=== PATIENT | male | born 1955 | race Caucasian/White ===

== ENCOUNTER → 2017-02-26 | Outpatient (CLI) | payer OTHER ==
[~2017-02-26] MED LIST: BENADRYL ALLERG25 M5 PO; CELECOXIB200 M1 PO; CIPRO500 MG PO; CORDROL20 MG PO; DEXILANT60 MG; DOK COLACE100 MG PO; DOK PLUS 50 MG-1 TAB PO; KEFLEX500 MG PO; LEVOFLOXACIN500 MG PO; LOPRESSOR25 MG; LOPRESSOR50 M1 PO; Lovenox40 MG/0.4 SC; MEDROL DOSEPAK4 MG PO; MILK OF MA400 MG/51 PO; NAPROSYN500 MG; NORCO 10-325 T1 EACH PO; OXYCONTIN10 M1 PO; PERCOCET 325 MG1 TA2 PO; SIMVASTATIN20 MG; ZOCOR20 MG PO; ZOFRAN 4 MG ED2 TAB PO
== END | disposition home or self-care (01) ==
LOC: ORTHO 02:36
DX: M25.562 Pain in left knee (principal); Z96.652 Presence of left artificial knee joint

== ENCOUNTER → 2017-03-22 | Outpatient (CLI) | payer OTHER ==
[2017-03-22 10:31] LABS: BASO % 0.5 % (0.0-1.0); EOS # 0.1 10*3/uL (0.0-0.4); EOS % 1.2 % (1.0-4.0); HEMATOCRIT 43.5 % (42.0-52.0); HEMOGLOBIN 14.6 g/dl (14.0-18.0); LYMPH # 1.8 10*3/uL (1.3-4.4); LYMPH % 23.7 % (27.0-41.0); MEAN CELL VOLUME 92.4 fl (80.0-94.0); MEAN CORPUSCULAR HGB CONC 33.6 g/dl (33.0-37.0); MEAN PLATELET VOLUME 10.2 fl (9.6-12.3); MONO # 0.7 10*3/uL (0.1-1.0); MONO % 9.7 % (3.0-9.0); NEUT # 4.8 10*3/uL (2.3-7.9); NEUT % 64.4 % (47.0-73.0); PLATELET COUNT AUTOMATED 191 10*3/uL (130-400); RED BLOOD COUNT 4.71 10*6/uL (4.50-5.90); RED CELL DISTRI WIDTH 13.3 % (0-14.5); WHITE BLOOD COUNT 7.4 10*3/uL (4.8-10.8)
[2017-03-22 10:59] LABS: HEMOGLOBIN A1c 5.7 % (4.8-5.6)
[2017-03-22 11:01] LABS: ALBUMIN 3.8 gm/dl (3.1-4.5); ALKALINE PHOSPHATASE 90 U/L (45-117); BILIRUBIN, TOTAL 0.5 mg/dl (0.2-1.0); BUN 16 mg/dl (7-24); CARBON DIOXIDE 27 mmol/L (21-32); CHLORIDE 106 mmol/L (98-107); CHOLESTEROL 166 mg/dL (<200); EST GLOM FILT AFRICAN AMERICAN > 60 ml/min; GLUCOSE 97 mg/dL (65-99); HDL CHOLESTEROL 23 mg/dl (40-60); POTASSIUM 3.8 mmol/L (3.5-5.1); SGOT/AST 20 IU/L (3-35); SGPT/ALT 29 U/L (12-78); SODIUM 139 mmol/L (136-145); TOTAL PROTEIN 7.5 gm/dL (6.4-8.2); TRIGLYCERIDES 440 mg/dl (<150)
== END | disposition home or self-care (01) ==
LOC: LAB 09:29
PROVIDERS: Family Medicine
DX: I10 Essential (primary) hypertension (principal)

== ENCOUNTER 2017-08-02 07:32 | Emergency (ER) | payer OTHER ==
[~2017-08-02] VITALS: Ht 177.8 cm; Wt 124.7 kg
[2017-08-02] MEDS ORDERED: LIDEX 0.05% CRE15 GM T (08:01)
[2017-08-02] MEDS ORDERED: TOBRADEX 0.1%-0.5 ML OPH (08:01)
[2017-08-02] MEDS ORDERED: PREDNISONE20 M1 PO (08:01)
== END 2017-08-02 08:07 | disposition home or self-care (01) ==
LOC: ED 07:32
DX: L25.9 Unspecified contact dermatitis, unspecified cause (principal); Z96.659 Presence of unspecified artificial knee joint; Z79.899 Other long term (current) drug therapy

== ENCOUNTER → 2017-11-05 | Outpatient (CLI) | payer OTHER ==
[~2017-11-05] MED LIST changes: +LIDEX 0.05% CRE15 GM T; +PREDNISONE20 M1 PO; +TOBRADEX 0.1%-0.5 ML OPH
== END | disposition home or self-care (01) ==
LOC: ORTHO 01:20
DX: Q66.52 Congenital pes planus, left foot (principal); M72.2 Plantar fascial fibromatosis

== ENCOUNTER → 2018-01-09 | Outpatient (CLI) | payer OTHER ==
[2018-01-09 11:58] LABS: BASO # 0.1 10*3/uL (0.0-0.1); BASO % 0.6 % (0.0-1.0); EOS # 0.1 10*3/uL (0.0-0.4); EOS % 0.9 % (1.0-4.0); HEMATOCRIT 43.3 % (42.0-52.0); HEMOGLOBIN 14.4 g/dl (14.0-18.0); LYMPH # 1.9 10*3/uL (1.3-4.4); LYMPH % 20.9 % (27.0-41.0); MEAN CELL VOLUME 91.7 fl (80.0-94.0); MEAN CORPUSCULAR HGB 30.5 pg (27.0-31.0); MEAN CORPUSCULAR HGB CONC 33.3 g/dl (33.0-37.0); MONO # 0.7 10*3/uL (0.1-1.0); NEUT # 6.3 10*3/uL (2.3-7.9); NEUT % 69.2 % (47.0-73.0); PLATELET COUNT AUTOMATED 203 10*3/uL (130-400); RED BLOOD COUNT 4.72 10*6/uL (4.50-5.90); RED CELL DISTRI WIDTH 13.5 % (0-14.5); WHITE BLOOD COUNT 9.1 10*3/uL (4.8-10.8)
[2018-01-09 12:14] LABS: ALBUMIN 3.9 gm/dl (3.1-4.5); BUN 15 mg/dl (7-24); CHLORIDE 104 mmol/L (98-107); CHOLESTEROL 157 mg/dL (<200); CREATININE 1.15 mg/dL (0.70-1.30); POTASSIUM 3.9 mmol/L (3.5-5.1); SGOT/AST 22 IU/L (3-35); SGPT/ALT 33 U/L (12-78); SODIUM 140 mmol/L (136-145); TRIGLYCERIDES 403 mg/dl (<150)
[2018-01-09 12:22] LABS: ALKALINE PHOSPHATASE 104 U/L (45-117); HDL CHOLESTEROL 22 mg/dl (40-60)
== END | disposition home or self-care (01) ==
LOC: LAB 11:21
PROVIDERS: Internal Medicine
DX: E78.2 Mixed hyperlipidemia (principal); R05 Cough; I10 Essential (primary) hypertension

== ENCOUNTER → 2018-01-15 | Outpatient (CLI) | payer OTHER | END | disposition home or self-care (01) | LOC: CARD 15:24 | DX: G47.33 Obstructive sleep apnea (adult) (pediatric) (principal); I10 Essential (primary) hypertension ==

== ENCOUNTER 2018-08-16 15:52 | Inpatient (IN) | payer OTHER ==
[~2018-08-16] VITALS: Ht 177.8 cm; Wt 122.1 kg
--- NOTE | ~2018-08-16 | EKG ---
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
--- NOTE | ~2018-08-16 | CON ---
[place], [place] REPORT OF CONSULTATION [id number] UNIT #: [id number] ROOM: 407 DOCTOR: SINDHU CANSECO MDJANINA BIRTHDATE: [birth year] DOS: 08/19/2018 PULMONARY CONSULTATION EVALUATION CONSULTATION REQUESTED BY: Hospitalist services. The patient was independently seen and examined, [id number] encounter, history was confirmed. Physical exam was performed. Labs reviewed. Assessment and management today was personally completed. Note done by the medical charge entry specialist approved. REASON FOR CONSULTATION: Assess the patient, nonresolving pneumonia, which are noted progressive with current usual treatment for community-acquired infection. HISTORY OF PRESENT ILLNESS: A 63-year-old white male who has been admitted to the hospital. The patient on the date of 08/16/2018 came into the Emergency Room was reported symptoms of syncope. The symptoms have been noted at home as the patient not feeling well prior to that for a few days. Associated symptoms of fatigue and tiredness with fever and chills and generalized malaise. The symptoms has been noted gradually worsen. The patient went to the urgent care and advised to go to the Emergency Room. The patient recommended to go to the hospital by the ambulance, but he declined, but came to the hospital by the private car. He has been noted temperature on admission in the Emergency Room for assessment of 101.2 degrees Fahrenheit, heart rate noted 94. Chest x-ray, reported as left lower lobe pneumonia. The patient has been started on the intravenous antibiotic of Levaquin 750 mg that has been continued since admission for the current medical pneumonia. The chest x-ray repeated that showed worsening of the pulmonary infiltration, requiring CT scan of the chest completion on 08/18/2018. The CT scan of the chest does show progressive consolidation in the left lower lobe and with lingula involvement. The patient does not have any symptoms of chest pain. He says these symptoms have been noted partially improved since hospitalization. He denies symptoms of hemoptysis or chest pain, fever or chills at the present time. REVIEW OF SYSTEMS: Done by the medical charge entry specialist, was approved. PAST MEDICAL HISTORY: The patient was known with: 1. History of diverticulosis. 2. Gastroesophageal reflux. 3. Hyperlipidemia. 4. Essential hypertension. 5. History of contact dermatitis. PAST SURGICAL HISTORY: Noted with the right noted knee placement that was done on 03/05/2016. SOCIAL HISTORY: Nonsmoker, lifetime. Lives at home. The patient noted nonsmoker. He is and has four children. FAMILY HISTORY: The patient's father at 89 years old from cancer and the [place], [place] REPORT OF CONSULTATION NAME: ANAHI BENAVIDEZ JR UNIT #: [id number] ROOM: 407 DOCTOR: JANINA BRADLEY MD BIRTHDATE: [birth year] mother at the age of 88 years from broken heart. MEDICATIONS: From home were listed use of Celebrex, Dexilant, Lopressor, and simvastatin. ALLERGIES: Noted with no known drug allergies. PHYSICAL EXAMINATION: GENERAL: A 63-year-old white male patient who has been currently noted without any acute distress at the time of the assessment. He has been noted comfortably sitting on the chair this morning of assessment. His height was recorded on admission by the nursing staff 5 feet 10 inches, weight of 269 pounds, BMI 38 on admission. VITAL SIGNS: The patient noted with intermittent low-grade fever range of the 103 degree Fahrenheit to 99.5 degrees Fahrenheit. The pulse oxygen saturation recorded on room air is 95%, this morning on admission. The patient requiring 4 liters of oxygen supplementation, maintain pulse ox 91%-96% saturation. HEENT: Chronic obesity. Head was atraumatic. Eyes: No icterus. NECK: Supple. CARDIOVASCULAR: S1, S2 is audible. LUNGS: The patient was noted with decreased breath sounds noted in the left lower lung. There was no wheezing or crackles. ABDOMEN: Soft, nontender. Bowel sounds present. EXTREMITIES: Without acute edema. SKIN: No lesions or rashes. MUSCULOSKELETAL: No deformities. GENITOURINARY: Cranial nerves 2-12 intact. LABORATORY DATA: CBC that was done on 08/19/2018, WBC count 11.7, hemoglobin 13.1, platelet count were normal. PT and PTT of 08/16/2018 was normal. Lactic acid on admission 08/16/2018 was normal. CMP of 08/16/2018, BUN of 20, creatinine 1.72, glucose 122. Sodium 132, AST of 61. CRP was noted as elevated as 23. The troponin which were done 3 sets on admission 08/16/[address] scan of the head, which was done for assessment syncopal episode was noted no acute intracranial abnormalities or pathologies. Urine culture of 08/16/2018 were noted as negative. Blood culture patient noted as no bacterial growths. Review of the radiology data: The chest x-ray that was done. 1. Chest x-ray was noted with a small infiltration, which appeared to be in the left lower lobe, possibly involving the lingula because of the inconspicuous left heart border. The chest x-ray that was done on 08/18/2018 was noted with increasing infiltration, consolidation, progression since comparison of chest x-ray on admission of 08/16/2018. CT scan of the chest that was done yesterday as well that has been personally reviewed. Large consolidative areas noted a bronchoscopy patient. A bronchogram resolved rather involving the right lower lobe, most of it with a small involvement of the lingula as well. The right lung appears to be clear. The mediastinal window did review is limited because of lack of intravenous contrast. However, there was no significant lymphadenopathy noted. Small hiatal hernia was also seen on the CT scan of the chest. [place], [place] REPORT OF CONSULTATION NAME: PRAMOD JRANAHI Julian UNIT #: [id number] ROOM: 407 DOCTOR: JANINA BRADLEY MD BIRTHDATE: [birth year] IMPRESSION: 1. The patient will be currently admitted to the hospital. The patient appears like community-acquired pneumonia for consolidation, but not responding to the treatment use of Levaquin with a radiologic worsening; however, partial improvement of symptoms were noted. He has a differential nonresolving pneumonia would be considered as atypical presentation for community-acquired infection including for the MRSA or other infection would be considered. 2. Mild hyponatremia. The patient was also noted related to current acute infection and consolidation with the secondary syndrome of inappropriate antidiuretic hormone. 3. Certainly malignancy could be considered, but less likely with the current setting. 4. Other atypical causes of current consolidation, nonresponsive to the pneumonia would be considered acute eosinophilic pneumonia as well. 5. Chronic obesity as well. PLAN OF MANAGEMENT: A systematic approach to be taken. The patient's workup for the noninfectious etiology of the patient and also for viral etiology to be assessed. The patient will be ordered assessment for the atypical infection. The patient with mycoplasma assessment, legionella pneumonia assessment as well as a viral panel. Bronchoscopy was planned to be done tomorrow morning to obtain a BAL specimen and further assessment culture for this patient as well. Other additional treatment changes in the therapy will be made based on progression of the illness. Empirically start the patient on intravenous vancomycin until the results will be known for this patient to rule out the community-acquired MRSA infection. Other supportive therapy, plan of management care to be done as well. Usual care with other therapy, plan of management is agreeable for bronchoscopy that will be done tomorrow morning. All other supportive care and therapy to be part of the patient accordingly. Thanks for allowing me to participate in the care of this patient. JANINA MANLEY MD CM:CONSTR:REPORT OF CONSULTATION 1306 09/04/18 0730 interface
--- NOTE | ~2018-08-16 | CON ---
[place], [place] REPORT OF CONSULTATION NAME: ANAHI BENAVIDEZ JR [facility] #: [id number] UNIT #: [id number] ROOM: 407 DOCTOR: KRYSTINA BOSCH DO BIRTHDATE: [birth year] DOS: 08/19/2018 REQUESTING PHYSICIAN: Hospitalist service. REASON FOR CONSULTATION: Left lower lobe pneumonia. HISTORY OF PRESENT ILLNESS: The patient is a 63-year-old male who initially presented to the ED on 08/16/2018. He states that a week ago, he felt poorly after work and the subsequent day, vomited in the morning and he was unable to go to work for the next 2 days. He states that on 08/16/2018, he went to [facility] where he passed out. He denies any trauma to his head and only reports experiencing abrasions to his right knee. He admits to increased shortness of breath, baseline wheezing, but no cough. He has been fatigued over the past week. A chest x-ray obtained in the ED showed bronchopneumonia to a lateral basilar segment of the left lower lobe. Head CT without contrast obtained at that time was negative for any acute process. He was diagnosed with pneumonia. Administered IV Levaquin and IV fluids and he was subsequently admitted to the general medical floor with telemetry monitoring. A subsequent chest x-ray obtained on 08/18/2018 showed worsening of the left infiltrate and a CT of the chest without contrast obtained on that same date showed a small lingular pneumonia with a large left lower lobe pneumonia. The Pulmonary Medicine service was consulted for further management of the patient's pneumonia. PAST MEDICAL HISTORY: Includes gastroesophageal reflux disease, diverticulosis, hyperlipidemia, hypertension, arthritis, reported history of obstructive sleep apnea per a sleep study performed about half a year ago. PAST SURGICAL HISTORY: Includes history of a left knee replacement. SOCIAL HISTORY: The patient denies use of tobacco. He consumes alcohol on an occasional basis. 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 FAMILY HISTORY: The patient's father at age 90 reportedly from cancer of the bone marrow. The patient's mother at age 88. ALLERGIES: No known drug allergies. MEDICATIONS: Include celecoxib 200 mg daily, pantoprazole 40 mg daily, cholecalciferol 2000 International Units daily, simvastatin 10 mg before bed, metoprolol tartrate 50 mg every 12 hours, Levaquin 750 mg IV daily, K-Phos 500 mg 3 times a day with meals, guaifenesin 1200 mg every 12 hours, DuoNeb treatments every 4 hours , subcutaneous heparin 5000 units every 12 hours. REVIEW OF SYSTEMS: GENERAL: Denies fevers or chills. HEENT: Denies changes to vision, hearing, eye pain, ear pain, or dysphagia. CARDIOVASCULAR: Denies chest pain, palpitations or diaphoresis. RESPIRATORY: Admits to shortness of breath, dyspnea on exertion. Denies coughing. Denies wheezing. Denies production of sputum. [place], [place] REPORT OF CONSULTATION NAME: ANAHI BENAVIDEZ JR UNIT #: [id number] ROOM: [facility] DOCTOR: KRYSTINA BOSCH DO BIRTHDATE: [birth year] ABDOMEN: Denies nausea, vomiting, abdominal pain, diarrhea, melena or hematochezia. GENITOURINARY: Denies dysuria, hematuria, increased urinary frequency or urgency. NEUROLOGICAL: Admits to lightheadedness. NEUROLOGIC: Denies dizziness. PSYCHOLOGICAL: Denies anxiety, depression or substance abuse. ENDOCRINE: Admits to intolerance to cold and heat. SKIN: Admits to abrasion to his right knee. Denies any ulcers or rashes. PHYSICAL EXAMINATION: VITAL SIGNS: Show temperature at 98.5 degrees Fahrenheit, heart rate 84, respiratory rate 20. Most recent blood pressure was 132/78, pulse oximetry was 95% on room air. GENERAL: The patient was awake, alert, responsive, cooperative and in no acute distress. HEENT: Head was normocephalic and atraumatic. There were no lesions or ulcerations noted to the eyes. NECK: Trachea appears midline. HEART: Regular rate and rhythm were noted. Positive S1 and S2 sounds are heard. No murmurs, rubs or gallops were appreciated. The bilateral lower extremities were without pitting edema. PULMONARY: Lungs are fairly clear to auscultation. There were basilar rales appreciated to the left lung. No rhonchi or wheezing was heard on exam. ABDOMEN: Soft and nontender to palpation. Bowel sounds were auscultated. Abdomen was nondistended. EXTREMITIES: Bilateral lower extremities were without pitting edema. No clubbing, cyanosis or erythema was noted. NEUROLOGIC: The patient was grossly without any focal neurologic deficits. Cranial nerves 2-12 are grossly intact. PSYCHOLOGICAL: The patient was with a normal mood and normal affect. He was a good historian. SKIN: Warm and dry without any induration or erythema. LABORATORY DATA: CBC from today shows white count at 6.0, hemoglobin 11.7, hematocrit 34.9, platelets 156. Chemistries today show sodium 135, potassium 3.5, chloride 99, bicarbonate 27, BUN 10, creatinine 0.95, glucose 93, calcium 8.2, phosphorus 3.0, magnesium 2.0, total bilirubin 0.4, AST 113, ALT 91, alkaline phosphatase 63, albumin 2.5. In terms of microbiology, blood cultures obtained on admission were negative for bacterial growth. Final urine culture showed no bacterial growth. Sputum cultures are pending. IMAGING STUDIES: Chest x-ray obtained on 08/16/2018 showed bronchopneumonia to the lateral basilar segment of the left lower lobe. Head CT without contrast obtained on 08/16/2018 showed no acute process. Chest x-ray obtained on 08/18/2018 showed borderline cardiomegaly with slight vascular congestion, trace left effusion and worsening left infiltrate. Chest CT obtained on 08/18/2018 without contrast showed small lingular pneumonia with a large left lower lobe pneumonia. [place], [place] REPORT OF CONSULTATION NAME: PRAMOD RENANAHI D UNIT #: [id number] ROOM: [facility] DOCTOR: KRYSTINA BOSCH DO BIRTHDATE: [birth year] IMPRESSION: 1. Left lower lobe pneumonia. 2. Normocytic anemia. 3. Lymphopenia. 4. Hyponatremia. 5. Transaminitis. 6. Severe protein calorie malnutrition. 7. Morbid obesity. 8. Vitamin D deficiency. 9. Prediabetes. PLAN OF MANAGEMENT: The patient is currently on IV Levaquin, guaifenesin and bronchodilator therapy. Sputum cultures are pending as are serologies for urinary legionella antigen and urinary strep pneumo antigen. A bronchoscopy will be arranged for tomorrow. The patient will be n.p.o. before midnight tonight. Krystina Bosch DO JANINA MANLEY MD CM:CONSTR:REPORT OF CONSULTATION 1301 08/19/18 1338 interface
--- NOTE | ~2018-08-16 | PR ---
[place], [place] PROGRESS NOTE NAME: ANAHI BENAVIDEZ JR UNIT #: [id number] ROOM: 407 DOCTOR: SINDHU CANSECO MD,JANINA BIRTHDATE: [birth year] DOS: 08/22/2018 SUBJECTIVE: The patient noted comfortable at this time, resting on the chair this morning. Denies any symptoms of fever or chills. Continued intravenous antibiotic for the patient as Levaquin and vancomycin. OBJECTIVE: VITAL SIGNS: The patient showed normal temperature, respiratory rate 18, heart rate 69, blood pressure 144/80. Pulse ox saturation on room air 92% saturation. HEENT: No acute change. NECK: Supple. CARDIOVASCULAR: S1, S2 audible. LUNGS: Noted without any wheeze or crackles. ABDOMEN: Soft, nontender. Bowel sounds present. EXTREMITIES: Without acute edema. LABORATORY DATA: Culture and bronchial washing noted normal ervin. The chest x-ray showed reduction of pulmonary infiltration, consolidation of left lower lobe. IMPRESSION: 1. The patient has currently pneumonia, considered with gram-positive organism, currently treated with vancomycin and Levaquin. 2. The patient with morbid obesity. PLAN OF TREATMENT: The patient was noted clinically stable, will be switched to the doxycycline 100 mg p.o. b.i.d. for the patient, first dose given in the hospital to assess and prior to home discharge. Outpatient assessment of the patient would be suggestive in a week to reassess the patient and continue therapy. Antibiotic therapy, 7 days of antibiotic was ordered. Discharge planning was discussed with Dr. Hazel Blum. JANINA MANLEY MD CM:PNTRANS [id number] JANINA CANSECO MD 08/22/18 8819 interface
--- NOTE | ~2018-08-16 | EKG ---
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
--- NOTE | ~2018-08-16 | PROC NOTE ---
[place], [place] PROCEDURE NOTE NAME: [id number] #: [id number] ROOM: 407 DOCTOR: SINDHU CANSECO MD,JANINA BIRTHDATE: [birth year] DOS: 08/20/2018 FIBEROPTIC BRONCHOSCOPY NOTE PREOPERATIVE DIAGNOSIS: Progressive infiltration and consolidation of left lower lobe lingula. POSTOPERATIVE DIAGNOSES: Purulent secretion present in the left main stem bronchus and left lower lobe bronchus with significant inflammatory changes. No obstructive lesions. PROCEDURE DESCRIPTION: Informed consent obtained from the patient. The patient was brought to the OR and placed in supine position. Conscious sedation administered by the Anesthesia Department. After achieving proper sedation, airway was introduced into the mouth. Bronchoscope was advanced to the airway into laryngeal area. Epiglottis and vocal cords were seen, the vocal cord moving symmetrically with movements. The bronchoscope was advanced to vocal cord and tracheal lumen. Tracheal lumen shows no secretions. The right upper, middle, and lower lobe bronchi were all examined and noted normal. Left main stem bronchus noted with significant inflammatory changes with small amount of purulent secretions that was suctioned out. Left lower bronchus was also noticed inflammatory changes with small amount of purulent secretions. Bronchial washings were taken from those areas including the lingula. Procedure was well tolerated without any complication. Postoperative findings will be discussed with the patient once the patient recovers the effects of acute sedation. JANINA MANLEY MD CM:PROCNOTE:PROCEDURE NOTE [id number] JANINA CANSECO MD
--- NOTE | ~2018-08-16 | PR ---
[place], [place] PROGRESS NOTE NAME: ANAHI BENAVIDEZ JR [facility] #: [id number] UNIT #: [id number] ROOM: 407 DOCTOR: SINDHU CANSECO MDJANINA BIRTHDATE: [birth year] DOS: 08/20/2018 SUBJECTIVE: The patient independently seen and examined, [id number] encounter, history was confirmed. Physical examination performed and reviewed. Assessment and management today personally completed. The patient's respiratory status essentially remains unchanged from yesterday. He does have a cough without any sputum expectoration, any symptoms of chest pain or hemoptysis. He has not been noted any high grade fever, low grade fever noted 99.6 degrees Fahrenheit last 24 hours. The patient does have symptoms of nausea, vomiting, diarrhea, abdominal pain, headache or diplopia. He is currently noted n.p.o. past midnight for bronchoscopy that was planned to be done this morning. Remaining systems were reviewed, they were noted all negative. OBJECTIVE: GENERAL: The patient has been noted comfortable at this time, lying in the bed without acute distress. VITAL SIGNS: Normal temperature, respiratory rate of 18, heart rate of 70, blood pressure 135/81 this morning. Pulse oxygen saturation recorded as room air 94% saturation. HEENT: Examination shows head was atraumatic. Eyes nonicterus. NECK: Supple. CARDIOVASCULAR: S1, S2 is audible. LUNGS: The patient was noted without any wheeze or crackles. Breaths are noted decreased left lower lung rather. ABDOMEN: Soft, nontender and bowel sounds present. EXTREMITIES: The patient noted without any edema, clubbing, cyanosis. CENTRAL NERVOUS SYSTEM: Cranial nerves 2-12 intact. SKIN: Noted without lesions or rashes. LABORATORY DATA: ESR yesterday was noted 110, which is significantly elevated. The C-reactive protein was noted 17.5, which was also elevated. IMPRESSION: Area of consolidation, infiltration predominantly in the right lower lobe in the lingula with progression with the previous antibiotics. Different etiology the patient of pneumonia and noninfectious etiology. The patient remains in consideration, which has been worked. The patient is currently planned for bronchoscopy to be done today. In the meantime, continue other supportive therapy, plan of management, care plan of therapies. Continue current antibiotic. The patient at the present time with vancomycin and the Levaquin. Follow the results of the serology of different noninfectious etiology. [place], [place] PROGRESS NOTE NAME: ANAHI BENAVIDEZ JR UNIT #: [id number] ROOM: [facility] DOCTOR: JANINA BRADLEY MD BIRTHDATE: [birth year] JANINA MANLEY MD CM:YAEL 4 JANINA CANSECO MD 08/20/18 0903 interface
--- NOTE | ~2018-08-16 | PR ---
[place], [place] PROGRESS NOTE NAME: ANAHI BENAVIDEZ JR [facility] #: [id number] UNIT #: [id number] ROOM: 407 DOCTOR: KRYSTINA BOSCH DO BIRTHDATE: [birth year] DOS: 08/20/2018 SUBJECTIVE: The patient denied nausea, vomiting, diarrhea, abdominal pain. He does still experience coughing without production of sputum. A bronchoscopy was performed on the patient earlier this morning. OBJECTIVE: VITAL SIGNS: Show temperature at 99.1 degrees Fahrenheit, heart rate at 90, respiratory rate 18, blood pressure 126/73, pulse oximetry was 95% on room air. GENERAL APPEARANCE: The patient was awake, alert, responsive, cooperative and in no acute distress. HEENT: Head was normocephalic and atraumatic. There are no lesions or ulcerations noted to the eyes. NECK: Trachea appears midline. HEART: Regular rate and rhythm were noted. Positive S1 and S2 sounds were heard. No murmurs, rubs or gallops are appreciated. The bilateral lower extremities were without pitting edema. PULMONARY: Lungs were fairly clear to auscultation, rales appreciated to the base of the left lung. No rhonchi or wheezing was heard. ABDOMEN: Soft and nontender to palpation. Bowel sounds were present. The abdomen was obese. EXTREMITIES: Bilateral lower extremities were without pitting edema. No clubbing, cyanosis or erythema was noted. LABORATORY DATA: Sed rate and CRP obtained yesterday 08/19/2018 were respectively at 110 and 17.50. Otherwise, there are no changes in terms of laboratory studies from yesterday's dictation on 08/19/2018. In terms of serologies a viral panel, urinary legionella, antigen urinary strep, pneumo antigen and a connective tissue disease workup are pending. In terms of microbiology sputum culture appears to show growth of normal ervin and flu swab was negative for flu A. and flu B. IMPRESSION: 1. Left lower lobe pneumonia. 2. Morbid obesity. PLAN OF MANAGEMENT: The patient is currently on IV Levaquin as well as IV vancomycin for empiric treatment of a suspected MRSA infection. He also remains on guaifenesin and bronchodilator therapy. The patient underwent a bronchoscopy procedure earlier today and it was noted that purulent secretion to a left main stem bronchus and significant inflammatory changes to the left lower lobe bronchus were seen. Small amounts of purulent secretions were suctioned during the procedure. Bronchial washings are now pending. Pulmonary medicine will continue to follow. Krystina Bosch DO [place], [place] PROGRESS NOTE NAME: ANAHI BENAVIDEZ JR UNIT #: [id number] ROOM: 407 DOCTOR: KRYSTINA BOSCH DO BIRTHDATE: [birth year] JANINA MANLEY MD CM:YAEL [id number] KRYSTINA BOSCH DO 08/20/18 1049 interface
--- NOTE | ~2018-08-16 | PR ---
[place], [place] PROGRESS NOTE NAME: ANAHI BENAVIDEZ JR UNIT #: [id number] ROOM: 407 DOCTOR: JANINA BRADLEY MD BIRTHDATE: [birth year] DOS: 08/21/2018 PULMONARY PROGRESS NOTE SUBJECTIVE: The patient noted comfortable at this time, has bronchoscopy completed yesterday with finding suggestive of acute severe pneumonia involving the left lower lobe. The patient reported symptoms of mild cough without any sputum expectoration. There were no symptoms of chest pain, shortness of breath has been noted decreasing. There were no symptoms of abdominal pain or hemoptysis. OBJECTIVE: VITAL SIGNS: Normal temperature, respiratory rate 17. Height of 60, blood pressure 158/88. The pulse oxygen saturation on 2 liters nasal cannula 92% saturation. HEENT: Examination shows head was atraumatic. Eyes nonicterus. NECK: Supple. CARDIOVASCULAR: S1, S2 is audible. LUNGS: The patient noted without any wheezing or crackles. Decreased breath sounds of left lower lung. ABDOMEN: Soft and obese. EXTREMITIES: Chronic obesity. LABORATORY DATA: The Gram stain of the bronchial washings, many white blood cells, moderate epithelial cells, moderate gram-positive cocci in pairs, chains and clusters and few gram-negative bacilli. The preliminary culture for the patient was pending. IMPRESSION: 1. The patient was currently noted with a large area of consolidation involving the left lower lobe with air bronchogram as a small infiltration involving the lingula as well. 2. Chronic obesity. PLAN OF MANAGEMENT: Continuation of current antibiotics, bronchodilators, and oxygen supplementation. Continue vancomycin trough level. Repeat chest x-ray in the morning for the patient for the discharge planning based on the chest x-ray will be considered. [place], [place] PROGRESS NOTE NAME: ANAHI BENAVIDEZ JR UNIT #: [id number] ROOM: 407 DOCTOR: JANINA BRADLEY MD BIRTHDATE: [birth year] JANINA MANLEY MD CM:PNTRANS [id number] JANINA CANSECO MD 08/21/18 1739 interface
[2018-08-16 15:53] VITALS: BP 136/72
[2018-08-16 16:17] LABS: BASO % 0.1 % (0.0-1.0); HEMATOCRIT 38.6 % (42.0-52.0); HEMOGLOBIN 13.1 g/dl (14.0-18.0); LYMPH % 8.2 % (27.0-41.0); MEAN CELL VOLUME 90.6 fl (80.0-94.0); MEAN CORPUSCULAR HGB 30.8 pg (27.0-31.0); MEAN CORPUSCULAR HGB CONC 33.9 g/dl (33.0-37.0); MEAN PLATELET VOLUME 9.9 fl (9.6-12.3); MONO # 0.9 10*3/uL (0.1-1.0); MONO % 7.9 % (3.0-9.0); NEUT # 9.8 10*3/uL (2.3-7.9); NEUT % 83.4 % (47.0-73.0); PLATELET COUNT AUTOMATED 179 10*3/uL (130-400); RED BLOOD COUNT 4.26 10*6/uL (4.50-5.90); RED CELL DISTRI WIDTH 13.7 % (0-14.5); WHITE BLOOD COUNT 11.7 10*3/uL (4.8-10.8)
[2018-08-16 16:26] LABS: ACT PARTIAL THROMBO TIME 29.8 SECONDS (20.8-31.5); INTERNATIONAL NORM RATIO 1.1 (2.0-3.5)
[2018-08-16 16:32] VITALS: BP 123/70; BP 123/80
[2018-08-16 16:33] LABS: ALBUMIN 3.3 gm/dl (3.1-4.5); ALKALINE PHOSPHATASE 59 U/L (45-117); BUN 20 mg/dl (7-24); CHLORIDE 98 mmol/L (98-107); CREATININE 1.72 mg/dL (0.70-1.30); LIPASE 339 U/L (73-393); POTASSIUM 3.6 mmol/L (3.5-5.1); SGOT/AST 61 IU/L (3-35); SGPT/ALT 43 U/L (12-78); SODIUM 132 mmol/L (136-145); TOTAL PROTEIN 7.8 gm/dL (6.4-8.2)
[2018-08-16 16:39] LABS: TROPONIN I < 0.015 ng/ml (<0.045)
[2018-08-16 17:20] VITALS: BP 114/64
[2018-08-16 17:42] LABS: BILIRUBIN NEGATIVE (NEGATIVE); BLOOD 3+ (NEGATIVE); CLARITY SL CLOUDY (CLEAR); COLOR YELLOW (YELLOW); GLUCOSE NEGATIVE (NEGATIVE); KETONE NEGATIVE (NEGATIVE)
[2018-08-16 17:43] LABS: BACTERIA TRACE; LEUKO ESTERASE NEGATIVE (NEGATIVE); NITRITE NEGATIVE (NEGATIVE); RBC 16-20 rbc/hpf (0-2); UROBILINOGEN 0.2 E.U./dl (0.2-1.0); WBC 0-2 wbc/hpf (0-5)
[2018-08-16 18:40] VITALS: BP 129/78
[2018-08-16] MEDS ORDERED: SIMVASTATIN10 MG PO (18:47)
[2018-08-16 20:00] VITALS: BP 108/51
[2018-08-17] VITALS: BP 107/32
[2018-08-17 04:00] VITALS: BP 129/68
[2018-08-17 06:09] LABS: BASO % 0.2 % (0.0-1.0); HEMATOCRIT 35.2 % (42.0-52.0); HEMOGLOBIN 11.7 g/dl (14.0-18.0); LYMPH # 0.9 10*3/uL (1.3-4.4); LYMPH % 9.9 % (27.0-41.0); MEAN CELL VOLUME 92.4 fl (80.0-94.0); MEAN CORPUSCULAR HGB 30.7 pg (27.0-31.0); MEAN CORPUSCULAR HGB CONC 33.2 g/dl (33.0-37.0); MEAN PLATELET VOLUME 10.2 fl (9.6-12.3); MONO # 0.6 10*3/uL (0.1-1.0); MONO % 6.4 % (3.0-9.0); NEUT # 7.8 10*3/uL (2.3-7.9); NEUT % 82.8 % (47.0-73.0); PLATELET COUNT AUTOMATED 152 10*3/uL (130-400); RED BLOOD COUNT 3.81 10*6/uL (4.50-5.90); RED CELL DISTRI WIDTH 14.1 % (0-14.5); WHITE BLOOD COUNT 9.4 10*3/uL (4.8-10.8)
[2018-08-17 06:24] LABS: BUN 16 mg/dl (7-24); CHLORIDE 101 mmol/L (98-107); CREATININE 1.35 mg/dL (0.70-1.30); FREE T4 1.19 ng/dl (0.76-1.46); POTASSIUM 3.3 mmol/L (3.5-5.1); SODIUM 135 mmol/L (136-145)
[2018-08-17 06:29] LABS: THYROID STIM HORMONE (HS) 0.774 uIU/ml (0.358-4.75)
[2018-08-17 07:04] LABS: VITAMIN D, 25-HYDROXY 25.5 ng/mL (30-100)
[2018-08-17 08:00] VITALS: BP 132/78
[2018-08-17 12:00] VITALS: BP 132/68
[2018-08-17 16:00] VITALS: BP 123/68
[2018-08-17 20:00] VITALS: BP 110/64
[2018-08-18] VITALS: BP 110/64; BP 135/73
[2018-08-18 08:00] VITALS: BP 138/86
[2018-08-18 12:00] VITALS: BP 130/84
[2018-08-18 16:00] VITALS: BP 123/72
[2018-08-18 20:00] VITALS: BP 149/67
[2018-08-19] VITALS: BP 132/78
[2018-08-19 06:56] LABS: BASO % 0.2 % (0.0-1.0); EOS # 0.1 10*3/uL (0.0-0.4); HEMATOCRIT 34.9 % (42.0-52.0); HEMOGLOBIN 11.7 g/dl (14.0-18.0); LYMPH # 1.1 10*3/uL (1.3-4.4); LYMPH % 17.4 % (27.0-41.0); MEAN CELL VOLUME 90.4 fl (80.0-94.0); MEAN CORPUSCULAR HGB 30.3 pg (27.0-31.0); MEAN CORPUSCULAR HGB CONC 33.5 g/dl (33.0-37.0); MEAN PLATELET VOLUME 10.1 fl (9.6-12.3); MONO # 0.5 10*3/uL (0.1-1.0); MONO % 7.6 % (3.0-9.0); NEUT # 4.4 10*3/uL (2.3-7.9); NEUT % 72.8 % (47.0-73.0); PLATELET COUNT AUTOMATED 156 10*3/uL (130-400); RED BLOOD COUNT 3.86 10*6/uL (4.50-5.90); RED CELL DISTRI WIDTH 14.3 % (0-14.5)
[2018-08-19 07:06] LABS: ALBUMIN 2.5 gm/dl (3.1-4.5); ALKALINE PHOSPHATASE 63 U/L (45-117); BUN 10 mg/dl (7-24); CHLORIDE 99 mmol/L (98-107); CREATININE 0.95 mg/dL (0.70-1.30); POTASSIUM 3.5 mmol/L (3.5-5.1); SGOT/AST 113 IU/L (3-35); SGPT/ALT 91 U/L (12-78); SODIUM 135 mmol/L (136-145); TOTAL PROTEIN 6.6 gm/dL (6.4-8.2)
[2018-08-19 12:00] VITALS: BP 95/68
[2018-08-19 16:00] VITALS: BP 108/60
[2018-08-19 20:00] VITALS: BP 126/71
[2018-08-20] VITALS (8 sets, daily range): BP systolic 122–167; BP diastolic 72–86
[2018-08-20 08:10] LABS: IMMUNOGLOBULIN M, QNT 26 mg/dL (20-172); RHEUMATOID ARTHRITIS FACTOR <10.0 IU/mL (0.0-13.9)
[2018-08-20 14:08] LABS: ALDOLASE 002030 11.2 U/L (3.3-10.3); ANGIOTENSIN-CONVERTING ENZYME 28 U/L (14-82)
[2018-08-20 16:06] LABS: ATYPICAL PANCA <1:20 titer (Neg:<1:20); CYTOPLASMIC (C-ANCA) <1:20 titer (Neg:<1:20)
[2018-08-21 01:55] VITALS: BP 143/80
[2018-08-21 08:00] VITALS: BP 158/88
[2018-08-21 08:12] LABS: IGG SUBCLASS 1 425 mg/dL (248-810); IGG SUBCLASS 2 168 mg/dL (130-555); IGG SUBCLASS 3 90 mg/dL (15-102); IGG SUBCLASS 4 22 mg/dL (2-96); IMMUNOGLOBULIN G, QNT 818 mg/dL (700-1600)
[2018-08-21 12:00] VITALS: BP 129/73
[2018-08-21 15:05] LABS: ACID FAST SPEC PROCESSING Concentration (.)
[2018-08-21 16:00] VITALS: BP 149/71
[2018-08-21 20:00] VITALS: BP 145/89
[2018-08-22] VITALS: BP 160/86
[2018-08-22 00:02] LABS: ADENOVIRUS Negative (Negative); INFLUENZA A Negative (Negative); INFLUENZA B Negative (Negative); METAPNEUMOVIRUS Negative (Negative); PARAINFLUENZA 1 Negative (Negative); PARAINFLUENZA 2 Negative (Negative); PARAINFLUENZA 3 Negative (Negative); RHINOVIRUS Negative (Negative); RSV A Negative (Negative); RSV B Negative (Negative)
[2018-08-22 00:02] LABS: IMMUNOGLOBULIN IgE 002170 41 IU/mL (0-100)
[2018-08-22 08:00] VITALS: BP 144/80
[2018-08-22] MEDS ORDERED: VITAMIN D-32000 UNIT PO (11:55)
[2018-08-22] MEDS ORDERED: DOXYCYCLINE100 M3 PO (11:55)
[2018-09-28 15:07] LABS: ACID FAST CULTURE Negative (.)
[2018-10-06 15:12] LABS: ORGANISM ID, MOLD Final report (.); RESULT 1 Final Identification (.)
== END 2018-08-22 13:35 | disposition home or self-care (01) | DRG 871 ==
LOC: ED 15:52 → EDHOLD 17:18 → 4E 17:18
PROVIDERS: Emergency Medicine; Internal Medicine Critical Care Medicine; Registered Nurse; Student in an Organized Health Care Education/Training Program
PROC: 0BC98ZZ Extirpation of Matter from Lingula Bronchus, Via Natural or Artificial Opening Endoscopic (ICD-10-PCS; principal; 2018-08-20)
PROC: 0BCB8ZZ Extirpation of Matter from Left Lower Lobe Bronchus, Via Natural or Artificial Opening Endoscopic (ICD-10-PCS; principal; 2018-08-20)
DX: A41.9 Sepsis, unspecified organism (principal); E43 Unspecified severe protein-calorie malnutrition; J15.9 Unspecified bacterial pneumonia; E87.1 Hypo-osmolality and hyponatremia; I10 Essential (primary) hypertension; D64.9 Anemia, unspecified; R74.0 Nonspecific elevation of levels of transaminase and lactic acid dehydrogenase [LDH]; E66.01 Morbid (severe) obesity due to excess calories; R73.03 Prediabetes; K57.90 Diverticulosis of intestine, part unspecified, without perforation or abscess without bleeding; G47.33 Obstructive sleep apnea (adult) (pediatric); Z96.652 Presence of left artificial knee joint; K21.9 Gastro-esophageal reflux disease without esophagitis; E87.6 Hypokalemia; E83.39 Other disorders of phosphorus metabolism; E78.5 Hyperlipidemia, unspecified; E83.51 Hypocalcemia; M17.12 Unilateral primary osteoarthritis, left knee; Z82.49 Family history of ischemic heart disease and other diseases of the circulatory system; Z79.899 Other long term (current) drug therapy; Z80.8 Family history of malignant neoplasm of other organs or systems; Z68.38 Body mass index [BMI] 38.0-38.9, adult

== ENCOUNTER → 2018-08-27 | Outpatient (CLI) | payer OTHER ==
[~2018-08-27] MED LIST changes: +DOXYCYCLINE100 M3 PO; +SIMVASTATIN10 MG PO; +VITAMIN D-32000 UNIT PO
== END | disposition home or self-care (01) ==
LOC: RESCLI 03:31
DX: Z09 Encounter for follow-up examination after completed treatment for conditions other than malignant neoplasm (principal); I10 Essential (primary) hypertension; K21.9 Gastro-esophageal reflux disease without esophagitis; E78.5 Hyperlipidemia, unspecified; N52.9 Male erectile dysfunction, unspecified; M19.90 Unspecified osteoarthritis, unspecified site; E55.9 Vitamin D deficiency, unspecified

== ENCOUNTER → 2018-09-25 | Outpatient (CLI) | payer OTHER ==
[2018-09-25 08:05] LABS: ALBUMIN 3.8 gm/dl (3.1-4.5); ALKALINE PHOSPHATASE 58 U/L (45-117); BUN 16 mg/dl (7-24); CHLORIDE 107 mmol/L (98-107); CHOLESTEROL 170 mg/dL (<200); CREATININE 1.21 mg/dL (0.70-1.30); HDL CHOLESTEROL 20 mg/dl (40-60); LDL CHOLESTEROL 83 mg/dL (9-159); PHOSPHOROUS 3.4 mg/dL (2.5-4.9); POTASSIUM 3.9 mmol/L (3.5-5.1); SGOT/AST 20 IU/L (3-35); SGPT/ALT 29 U/L (12-78); SODIUM 142 mmol/L (136-145); TOTAL PROTEIN 7.4 gm/dL (6.4-8.2); TRIGLYCERIDES 336 mg/dl (<150); VLDL CHOLESTEROL 67 mg/dL (6-40)
[2018-09-25 08:11] LABS: BASO % 0.5 % (0.0-1.0); EOS # 0.2 10*3/uL (0.0-0.4); EOS % 2.3 % (1.0-4.0); HEMATOCRIT 40.9 % (42.0-52.0); HEMOGLOBIN 13.6 g/dl (14.0-18.0); LYMPH % 30.9 % (27.0-41.0); MEAN CELL VOLUME 91.9 fl (80.0-94.0); MEAN CORPUSCULAR HGB 30.6 pg (27.0-31.0); MEAN CORPUSCULAR HGB CONC 33.3 g/dl (33.0-37.0); MONO # 0.6 10*3/uL (0.1-1.0); MONO % 8.9 % (3.0-9.0); NEUT # 3.7 10*3/uL (2.3-7.9); NEUT % 57.1 % (47.0-73.0); PLATELET COUNT AUTOMATED 243 10*3/uL (130-400); RED BLOOD COUNT 4.45 10*6/uL (4.50-5.90); RED CELL DISTRI WIDTH 13.7 % (0-14.5); WHITE BLOOD COUNT 6.4 10*3/uL (4.8-10.8)
== END | disposition home or self-care (01) ==
LOC: LAB 07:13
PROVIDERS: Internal Medicine
DX: E78.5 Hyperlipidemia, unspecified (principal)

== ENCOUNTER → 2018-09-30 | Outpatient (CLI) | payer OTHER | END | disposition home or self-care (01) | LOC: RESCLI 07:45 | DX: I10 Essential (primary) hypertension (principal); E66.9 Obesity, unspecified; K21.9 Gastro-esophageal reflux disease without esophagitis; E78.5 Hyperlipidemia, unspecified; N52.9 Male erectile dysfunction, unspecified; M19.90 Unspecified osteoarthritis, unspecified site; E55.9 Vitamin D deficiency, unspecified; R73.03 Prediabetes; Z79.899 Other long term (current) drug therapy; Z88.8 Allergy status to other drugs, medicaments and biological substances ==

== ENCOUNTER 2018-10-14 11:03 | Emergency (ER) | payer OTHER ==
[~2018-10-14] VITALS: Wt 120.2 kg
== END 2018-10-14 11:58 | disposition home or self-care (01) ==
LOC: ED 11:03
DX: S61.012A Laceration without foreign body of left thumb without damage to nail, initial encounter (principal); Z23 Encounter for immunization; Z79.899 Other long term (current) drug therapy; Z79.2 Long term (current) use of antibiotics; W26.0XXA Contact with knife, initial encounter; Y93.89 Activity, other specified; Y92.89 Other specified places as the place of occurrence of the external cause; Y99.8 Other external cause status

== ENCOUNTER → 2018-11-03 | Outpatient (CLI) | payer OTHER | END | disposition home or self-care (01) | LOC: RESCLI 16:04 | DX: M54.5 Low back pain (principal); K21.9 Gastro-esophageal reflux disease without esophagitis; I10 Essential (primary) hypertension; E78.5 Hyperlipidemia, unspecified; Z90.49 Acquired absence of other specified parts of digestive tract; Z79.899 Other long term (current) drug therapy; Z88.8 Allergy status to other drugs, medicaments and biological substances ==

== ENCOUNTER → 2018-12-03 | Outpatient (CLI) | payer OTHER | END | disposition home or self-care (01) | LOC: ORTHO 01:13 | DX: Z47.1 Aftercare following joint replacement surgery (principal); I10 Essential (primary) hypertension; J44.9 Chronic obstructive pulmonary disease, unspecified; Z96.652 Presence of left artificial knee joint ==

== ENCOUNTER → 2019-01-04 | Outpatient (CLI) | payer OTHER ==
[2019-01-04 08:58] LABS: ALBUMIN 3.8 gm/dl (3.1-4.5); ALKALINE PHOSPHATASE 60 U/L (45-117); BUN 21 mg/dl (7-24); CHLORIDE 109 mmol/L (98-107); CHOLESTEROL 166 mg/dL (<200); HDL CHOLESTEROL 21 mg/dl (40-60); LDL CHOLESTEROL 82 mg/dL (9-159); POTASSIUM 3.9 mmol/L (3.5-5.1); SGOT/AST 17 IU/L (3-35); SGPT/ALT 27 U/L (12-78); SODIUM 142 mmol/L (136-145); TOTAL PROTEIN 7.5 gm/dL (6.4-8.2); TRIGLYCERIDES 316 mg/dl (<150); VLDL CHOLESTEROL 63 mg/dL (6-40)
== END | disposition home or self-care (01) ==
LOC: LAB 07:16
PROVIDERS: Obstetrics & Gynecology
DX: E78.5 Hyperlipidemia, unspecified (principal); E55.9 Vitamin D deficiency, unspecified; R73.03 Prediabetes

== ENCOUNTER → 2019-03-17 | Outpatient (CLI) | payer OTHER ==
[2019-03-17 07:37] LABS: ALKALINE PHOSPHATASE 60 U/L (45-117); BUN 14 mg/dl (7-24); CHLORIDE 105 mmol/L (98-107); CHOLESTEROL 161 mg/dL (<200); CREATININE 1.35 mg/dL (0.70-1.30); HDL CHOLESTEROL 23 mg/dl (40-60); LDL CHOLESTEROL 80 mg/dL (9-159); POTASSIUM 3.9 mmol/L (3.5-5.1); SGOT/AST 24 IU/L (3-35); SGPT/ALT 29 U/L (12-78); SODIUM 139 mmol/L (136-145); TOTAL PROTEIN 7.9 gm/dL (6.4-8.2); TRIGLYCERIDES 288 mg/dl (<150); VLDL CHOLESTEROL 58 mg/dL (6-40)
== END | disposition home or self-care (01) ==
LOC: LAB 06:59
PROVIDERS: Internal Medicine
DX: E78.5 Hyperlipidemia, unspecified (principal); R73.03 Prediabetes; E55.9 Vitamin D deficiency, unspecified; I10 Essential (primary) hypertension

== ENCOUNTER → 2020-08-02 | Outpatient (CLI) | payer OTHER | END | disposition home or self-care (01) | LOC: RESCLI 01:04 | PROVIDERS: ATTEND Internal Medicine Nephrology | DX: N52.9 Male erectile dysfunction, unspecified (principal); K21.9 Gastro-esophageal reflux disease without esophagitis; I10 Essential (primary) hypertension; E55.9 Vitamin D deficiency, unspecified; G47.33 Obstructive sleep apnea (adult) (pediatric); E78.2 Mixed hyperlipidemia; G89.29 Other chronic pain; M54.5 Low back pain; M19.90 Unspecified osteoarthritis, unspecified site; J44.9 Chronic obstructive pulmonary disease, unspecified; Z79.899 Other long term (current) drug therapy; Z98.890 Other specified postprocedural states ==

== ENCOUNTER → 2020-10-28 | Outpatient (CLI) | payer OTHER ==
[2020-10-28 11:53] LABS: BASO % 0.6 % (0.0-1.0); EOS # 0.1 10*3/uL (0.0-0.4); EOS % 1.4 % (1.0-4.0); HEMATOCRIT 43.6 % (42.0-52.0); LYMPH # 1.8 10*3/uL (1.3-4.4); LYMPH % 24.7 % (27.0-41.0); MEAN CELL VOLUME 90.6 fl (80.0-94.0); MEAN CORPUSCULAR HGB 29.1 pg (27.0-31.0); MEAN CORPUSCULAR HGB CONC 32.1 g/dl (33.0-37.0); MEAN PLATELET VOLUME 10.7 fl (9.6-12.3); MONO # 0.7 10*3/uL (0.1-1.0); MONO % 10.1 % (3.0-9.0); NEUT # 4.6 10*3/uL (2.3-7.9); NEUT % 62.8 % (47.0-73.0); PLATELET COUNT AUTOMATED 251 10*3/uL (130-400); RED BLOOD COUNT 4.81 10*6/uL (4.50-5.90); RED CELL DISTRI WIDTH 13.2 % (0-14.5); WHITE BLOOD COUNT 7.3 10*3/uL (4.8-10.8)
[2020-10-28 12:23] LABS: ALBUMIN 3.8 gm/dl (3.1-4.5); ALKALINE PHOSPHATASE 61 U/L (45-117); BUN 17 mg/dl (7-24); CHLORIDE 109 mmol/L (98-107); CHOLESTEROL 156 mg/dL (<200); CREATININE 1.22 mg/dL (0.70-1.30); HDL CHOLESTEROL 21 mg/dl (40-60); LDL CHOLESTEROL 64 mg/dL (9-159); POTASSIUM 3.8 mmol/L (3.5-5.1); SGOT/AST 18 IU/L (3-35); SGPT/ALT 25 U/L (12-78); SODIUM 140 mmol/L (136-145); TOTAL PROTEIN 7.7 gm/dL (6.4-8.2); TRIGLYCERIDES 357 mg/dl (<150); VLDL CHOLESTEROL 71 mg/dL (6-40)
[2020-11-01 00:06] LABS: TESTOSTERONE FREE, (DIRECT) 29.2 pg/mL (6.6-18.1)
== END | disposition home or self-care (01) ==
LOC: LAB 10:15
PROVIDERS: ATTEND Internal Medicine Nephrology
DX: I10 Essential (primary) hypertension (principal); E78.2 Mixed hyperlipidemia; E55.9 Vitamin D deficiency, unspecified; N52.9 Male erectile dysfunction, unspecified

== ENCOUNTER → 2020-11-14 | Outpatient (CLI) | payer OTHER | END | disposition home or self-care (01) | LOC: RESCLI 01:00 | PROVIDERS: ATTEND Student in an Organized Health Care Education/Training Program | DX: K21.9 Gastro-esophageal reflux disease without esophagitis (principal); I10 Essential (primary) hypertension; N52.9 Male erectile dysfunction, unspecified; E55.9 Vitamin D deficiency, unspecified; E78.2 Mixed hyperlipidemia; M54.5 Low back pain; M19.90 Unspecified osteoarthritis, unspecified site; Z79.899 Other long term (current) drug therapy ==

== ENCOUNTER → 2021-02-28 | Outpatient (CLI) | payer OTHER | END | disposition home or self-care (01) | LOC: RESCLI 00:42 | PROVIDERS: ATTEND Internal Medicine Nephrology | DX: I10 Essential (primary) hypertension (principal); J40 Bronchitis, not specified as acute or chronic; J44.9 Chronic obstructive pulmonary disease, unspecified; N52.9 Male erectile dysfunction, unspecified; E55.9 Vitamin D deficiency, unspecified; M54.5 Low back pain; K21.9 Gastro-esophageal reflux disease without esophagitis; E78.2 Mixed hyperlipidemia; Z79.899 Other long term (current) drug therapy; Z98.890 Other specified postprocedural states ==

== ENCOUNTER → 2021-08-03 | Outpatient (CLI) | payer OTHER | END | disposition home or self-care (01) | LOC: COVID19 15:39 | PROVIDERS: ATTEND Podiatrist Foot & Ankle Surgery | DX: Z11.52 Encounter for screening for COVID-19 (principal) ==

== ENCOUNTER → 2022-01-01 | Outpatient (CLI) | payer OTHER | END | disposition home or self-care (01) | LOC: RESCLI 14:23 | PROVIDERS: ATTEND Emergency Medicine | DX: K21.9 Gastro-esophageal reflux disease without esophagitis (principal); E78.5 Hyperlipidemia, unspecified; E55.9 Vitamin D deficiency, unspecified; E66.9 Obesity, unspecified; I10 Essential (primary) hypertension; Z79.899 Other long term (current) drug therapy; M19.90 Unspecified osteoarthritis, unspecified site; J44.9 Chronic obstructive pulmonary disease, unspecified; G47.33 Obstructive sleep apnea (adult) (pediatric); Z98.890 Other specified postprocedural states ==

== ENCOUNTER → 2022-01-05 | Outpatient (CLI) | payer OTHER ==
[2022-01-05 09:54] LABS: BASO % 0.4 % (0.0-1.0); EOS # 0.1 10*3/uL (0.0-0.4); HEMATOCRIT 41.6 % (42.0-52.0); LYMPH # 1.7 10*3/uL (1.3-4.4); LYMPH % 21.3 % (27.0-41.0); MEAN CELL VOLUME 90.8 fl (80.0-94.0); MEAN CORPUSCULAR HGB 30.1 pg (27.0-31.0); MEAN CORPUSCULAR HGB CONC 33.2 g/dl (33.0-37.0); MEAN PLATELET VOLUME 9.1 fl (9.6-12.3); MONO # 0.7 10*3/uL (0.1-1.0); MONO % 9.2 % (3.0-9.0); NEUT # 5.4 10*3/uL (2.3-7.9); NEUT % 67.8 % (47.0-73.0); PLATELET COUNT AUTOMATED 183 10*3/uL (130-400); RED BLOOD COUNT 4.58 10*6/uL (4.50-5.90); RED CELL DISTRI WIDTH 13.7 % (0-14.5)
[2022-01-05 10:09] LABS: ALBUMIN 3.7 gm/dl (3.1-4.5); ALKALINE PHOSPHATASE 93 U/L (45-117); BUN 15 mg/dl (7-24); CHLORIDE 112 mmol/L (98-107); CHOLESTEROL 97 mg/dL (<200); CREATININE 1.13 mg/dL (0.70-1.30); LDL CHOLESTEROL 29 mg/dL (9-159); POTASSIUM 4.1 mmol/L (3.5-5.1); SGOT/AST 18 IU/L (3-35); SGPT/ALT 33 U/L (12-78); SODIUM 142 mmol/L (136-145); TOTAL PROTEIN 7.3 gm/dL (6.4-8.2); TRIGLYCERIDES 228 mg/dl (<150)
== END | disposition home or self-care (01) ==
LOC: LAB 09:21
PROVIDERS: ATTEND Internal Medicine
DX: E78.5 Hyperlipidemia, unspecified (principal); E55.9 Vitamin D deficiency, unspecified; E66.9 Obesity, unspecified; Z79.899 Other long term (current) drug therapy

== ENCOUNTER → 2022-01-29 | Outpatient (CLI) | payer OTHER, MEDICARE | END | disposition home or self-care (01) | LOC: RESCLI 02:17 | PROVIDERS: ATTEND Internal Medicine | DX: I10 Essential (primary) hypertension (principal); E78.5 Hyperlipidemia, unspecified; K21.9 Gastro-esophageal reflux disease without esophagitis; J44.9 Chronic obstructive pulmonary disease, unspecified; G47.33 Obstructive sleep apnea (adult) (pediatric); Z79.899 Other long term (current) drug therapy; Z79.82 Long term (current) use of aspirin ==

== ENCOUNTER → 2022-03-01 | Outpatient (CLI) | payer OTHER | END | disposition home or self-care (01) | LOC: RESCLI 01:12 | PROVIDERS: ATTEND Internal Medicine | DX: M17.9 Osteoarthritis of knee, unspecified (principal); G47.33 Obstructive sleep apnea (adult) (pediatric); I11.9 Hypertensive heart disease without heart failure; J44.9 Chronic obstructive pulmonary disease, unspecified; K21.9 Gastro-esophageal reflux disease without esophagitis; E78.5 Hyperlipidemia, unspecified; E55.9 Vitamin D deficiency, unspecified; I51.89 Other ill-defined heart diseases; Z79.82 Long term (current) use of aspirin; Z79.899 Other long term (current) drug therapy; Z88.8 Allergy status to other drugs, medicaments and biological substances ==

== ENCOUNTER → 2023-06-20 | Outpatient (CLI) | payer OTHER | END | disposition home or self-care (01) | LOC: RESCLI 13:06 | PROVIDERS: ATTEND Internal Medicine | DX: I10 Essential (primary) hypertension (principal); G47.33 Obstructive sleep apnea (adult) (pediatric); K21.9 Gastro-esophageal reflux disease without esophagitis; E55.9 Vitamin D deficiency, unspecified; J44.9 Chronic obstructive pulmonary disease, unspecified; E78.5 Hyperlipidemia, unspecified; M54.9 Dorsalgia, unspecified; G89.29 Other chronic pain; Z12.11 Encounter for screening for malignant neoplasm of colon; R73.9 Hyperglycemia, unspecified; Z98.890 Other specified postprocedural states; Z79.899 Other long term (current) drug therapy ==

== ENCOUNTER → 2023-06-24 | Outpatient (CLI) | payer OTHER, MEDICARE ==
[2023-06-24 09:04] LABS: BASO % 0.3 % (0.0-1.0); EOS # 0.1 10*3/uL (0.0-0.4); EOS % 1.2 % (1.0-4.0); HEMATOCRIT 40.6 % (42.0-52.0); LYMPH # 1.9 10*3/uL (1.3-4.4); LYMPH % 24.6 % (27.0-41.0); MEAN CELL VOLUME 92.1 fl (80.0-94.0); MEAN CORPUSCULAR HGB 30.8 pg (27.0-31.0); MEAN CORPUSCULAR HGB CONC 33.5 g/dl (33.0-37.0); MEAN PLATELET VOLUME 9.4 fl (9.6-12.3); MONO # 0.7 10*3/uL (0.1-1.0); MONO % 9.2 % (3.0-9.0); NEUT % 64.4 % (47.0-73.0); PLATELET COUNT AUTOMATED 192 10*3/uL (130-400); RED BLOOD COUNT 4.41 10*6/uL (4.50-5.90); RED CELL DISTRI WIDTH 13.5 % (0-14.5); WHITE BLOOD COUNT 7.7 10*3/uL (4.8-10.8)
[2023-06-24 10:07] LABS: ALKALINE PHOSPHATASE 92 U/L (46-116); BUN 15 mg/dl (9-23); CHLORIDE 109 mmol/L (98-107); CHOLESTEROL 112 mg/dL (<200); LDL CHOLESTEROL 27 mg/dL (9-159); POTASSIUM 3.9 mmol/L (3.4-5.1); SGPT/ALT 31 U/L (10-49); TOTAL PROTEIN 7.3 gm/dL (6.0-8.0); TRIGLYCERIDES 316 mg/dl (<150)
== END | disposition home or self-care (01) ==
LOC: LAB 08:14
PROVIDERS: Internal Medicine; ATTEND Family Medicine
DX: M48.07 Spinal stenosis, lumbosacral region (principal); I10 Essential (primary) hypertension; E78.5 Hyperlipidemia, unspecified; E55.9 Vitamin D deficiency, unspecified; R73.9 Hyperglycemia, unspecified

== ENCOUNTER → 2023-07-30 | Outpatient (CLI) | payer MEDICARE, OTHER | END | disposition home or self-care (01) | LOC: RESCLI 07:55 | PROVIDERS: ATTEND Student in an Organized Health Care Education/Training Program | DX: I10 Essential (primary) hypertension (principal); G47.33 Obstructive sleep apnea (adult) (pediatric); K21.9 Gastro-esophageal reflux disease without esophagitis; E55.9 Vitamin D deficiency, unspecified; G89.29 Other chronic pain; E78.5 Hyperlipidemia, unspecified; M79.604 Pain in right leg; M54.9 Dorsalgia, unspecified; L03.90 Cellulitis, unspecified; Z98.890 Other specified postprocedural states; Z88.8 Allergy status to other drugs, medicaments and biological substances; Z79.899 Other long term (current) drug therapy ==

== ENCOUNTER → 2023-08-28 | Outpatient (CLI) | payer OTHER ==
[~2023-08-28] MED LIST changes: +SEPTDS PO; +VIBRAMYCIN100 MG PO
== END | disposition home or self-care (01) ==
LOC: WOUNDCARE 01:05
PROVIDERS: ATTEND Nurse Practitioner Family
DX: S81.801A Unspecified open wound, right lower leg, initial encounter (principal); L97.812 Non-pressure chronic ulcer of other part of right lower leg with fat layer exposed; E78.5 Hyperlipidemia, unspecified; I87.2 Venous insufficiency (chronic) (peripheral); I73.9 Peripheral vascular disease, unspecified; I10 Essential (primary) hypertension; Z96.652 Presence of left artificial knee joint; X58.XXXA Exposure to other specified factors, initial encounter; Y93.89 Activity, other specified; Y92.89 Other specified places as the place of occurrence of the external cause; Y99.8 Other external cause status

== ENCOUNTER → 2023-09-02 | Outpatient (CLI) | payer OTHER | END | disposition home or self-care (01) | LOC: US 12:49 | PROVIDERS: ATTEND Nurse Practitioner Family | DX: I73.9 Peripheral vascular disease, unspecified (principal); I87.2 Venous insufficiency (chronic) (peripheral); I10 Essential (primary) hypertension; J44.9 Chronic obstructive pulmonary disease, unspecified; R06.02 Shortness of breath ==

== ENCOUNTER → 2023-09-04 | Outpatient (CLI) | payer OTHER | END | disposition home or self-care (01) | LOC: WOUNDCARE 00:50 | PROVIDERS: ATTEND Nurse Practitioner Family | DX: S81.801D Unspecified open wound, right lower leg, subsequent encounter (principal); L97.812 Non-pressure chronic ulcer of other part of right lower leg with fat layer exposed; I87.2 Venous insufficiency (chronic) (peripheral); I73.9 Peripheral vascular disease, unspecified; E78.5 Hyperlipidemia, unspecified; I10 Essential (primary) hypertension; Z96.652 Presence of left artificial knee joint; X58.XXXD Exposure to other specified factors, subsequent encounter ==

== ENCOUNTER → 2023-09-11 | Outpatient (CLI) | payer OTHER | END | disposition home or self-care (01) | LOC: WOUNDCARE 02:11 | PROVIDERS: ATTEND Nurse Practitioner Family | DX: S81.801D Unspecified open wound, right lower leg, subsequent encounter (principal); L97.812 Non-pressure chronic ulcer of other part of right lower leg with fat layer exposed; I87.2 Venous insufficiency (chronic) (peripheral); I73.9 Peripheral vascular disease, unspecified; E78.5 Hyperlipidemia, unspecified; I10 Essential (primary) hypertension; Z96.652 Presence of left artificial knee joint; X58.XXXD Exposure to other specified factors, subsequent encounter ==

== ENCOUNTER → 2023-09-17 | Outpatient (CLI) | payer OTHER | END | disposition home or self-care (01) | LOC: RESCLI 00:32 | PROVIDERS: ATTEND Internal Medicine | DX: I10 Essential (primary) hypertension (principal); G47.33 Obstructive sleep apnea (adult) (pediatric); J44.9 Chronic obstructive pulmonary disease, unspecified; E78.5 Hyperlipidemia, unspecified; M54.9 Dorsalgia, unspecified; K21.9 Gastro-esophageal reflux disease without esophagitis; F10.90 Alcohol use, unspecified, uncomplicated; Z88.8 Allergy status to other drugs, medicaments and biological substances; Z82.49 Family history of ischemic heart disease and other diseases of the circulatory system; Z79.899 Other long term (current) drug therapy; Z81.2 Family history of tobacco abuse and dependence ==

== ENCOUNTER → 2023-09-18 | Outpatient (CLI) | payer OTHER | END | disposition home or self-care (01) | LOC: WOUNDCARE 01:14 | PROVIDERS: ATTEND Nurse Practitioner Family | DX: S81.801D Unspecified open wound, right lower leg, subsequent encounter (principal); L97.812 Non-pressure chronic ulcer of other part of right lower leg with fat layer exposed; I87.2 Venous insufficiency (chronic) (peripheral); I73.9 Peripheral vascular disease, unspecified; E78.5 Hyperlipidemia, unspecified; I10 Essential (primary) hypertension; Z96.652 Presence of left artificial knee joint; X58.XXXD Exposure to other specified factors, subsequent encounter ==

== ENCOUNTER → 2023-09-25 | Outpatient (CLI) | payer OTHER | END | disposition home or self-care (01) | LOC: WOUNDCARE 01:23 | PROVIDERS: ATTEND Nurse Practitioner Family | DX: L97.812 Non-pressure chronic ulcer of other part of right lower leg with fat layer exposed (principal); S81.801D Unspecified open wound, right lower leg, subsequent encounter; I87.2 Venous insufficiency (chronic) (peripheral); I73.9 Peripheral vascular disease, unspecified; E78.5 Hyperlipidemia, unspecified; I10 Essential (primary) hypertension; Z96.652 Presence of left artificial knee joint; X58.XXXD Exposure to other specified factors, subsequent encounter ==

== ENCOUNTER → 2023-10-02 | Outpatient (CLI) | payer OTHER | END | disposition home or self-care (01) | LOC: WOUNDCARE 01:06 | PROVIDERS: ATTEND Nurse Practitioner Family | DX: S81.801D Unspecified open wound, right lower leg, subsequent encounter (principal); L97.812 Non-pressure chronic ulcer of other part of right lower leg with fat layer exposed; I87.2 Venous insufficiency (chronic) (peripheral); I73.9 Peripheral vascular disease, unspecified; E78.5 Hyperlipidemia, unspecified; I10 Essential (primary) hypertension; Z96.652 Presence of left artificial knee joint; X58.XXXD Exposure to other specified factors, subsequent encounter ==

== ENCOUNTER → 2023-10-07 | Outpatient (CLI) | payer OTHER | END | disposition home or self-care (01) | LOC: WOUNDCARE 02:15 | PROVIDERS: ATTEND Nurse Practitioner Family | DX: S81.801D Unspecified open wound, right lower leg, subsequent encounter (principal); L97.812 Non-pressure chronic ulcer of other part of right lower leg with fat layer exposed; I87.2 Venous insufficiency (chronic) (peripheral); I73.9 Peripheral vascular disease, unspecified; E78.5 Hyperlipidemia, unspecified; I10 Essential (primary) hypertension; Z96.652 Presence of left artificial knee joint; X58.XXXD Exposure to other specified factors, subsequent encounter ==

== ENCOUNTER → 2023-10-16 | Outpatient (CLI) | payer OTHER | END | disposition home or self-care (01) | LOC: WOUNDCARE 01:01 | PROVIDERS: ATTEND Nurse Practitioner Family | DX: S81.801D Unspecified open wound, right lower leg, subsequent encounter (principal); L97.812 Non-pressure chronic ulcer of other part of right lower leg with fat layer exposed; I87.2 Venous insufficiency (chronic) (peripheral); I73.9 Peripheral vascular disease, unspecified; E78.5 Hyperlipidemia, unspecified; I10 Essential (primary) hypertension; Z96.652 Presence of left artificial knee joint; X58.XXXD Exposure to other specified factors, subsequent encounter ==

== ENCOUNTER → 2023-10-23 | Outpatient (CLI) | payer OTHER | END | disposition home or self-care (01) | LOC: WOUNDCARE 01:05 | PROVIDERS: ATTEND Nurse Practitioner Family | DX: S81.801D Unspecified open wound, right lower leg, subsequent encounter (principal); L97.812 Non-pressure chronic ulcer of other part of right lower leg with fat layer exposed; I87.2 Venous insufficiency (chronic) (peripheral); I73.9 Peripheral vascular disease, unspecified; I10 Essential (primary) hypertension; E78.5 Hyperlipidemia, unspecified; Z96.652 Presence of left artificial knee joint; X58.XXXD Exposure to other specified factors, subsequent encounter ==

== ENCOUNTER → 2023-10-30 | Outpatient (CLI) | payer OTHER | END | disposition home or self-care (01) | LOC: WOUNDCARE 00:45 | PROVIDERS: ATTEND Nurse Practitioner Family | DX: S81.801D Unspecified open wound, right lower leg, subsequent encounter (principal); L97.812 Non-pressure chronic ulcer of other part of right lower leg with fat layer exposed; I87.2 Venous insufficiency (chronic) (peripheral); I73.9 Peripheral vascular disease, unspecified; E78.5 Hyperlipidemia, unspecified; I10 Essential (primary) hypertension; Z96.652 Presence of left artificial knee joint; X58.XXXD Exposure to other specified factors, subsequent encounter ==

== ENCOUNTER → 2023-11-06 | Outpatient (CLI) | payer OTHER | END | disposition home or self-care (01) | LOC: WOUNDCARE 01:44 | PROVIDERS: ATTEND Nurse Practitioner Family | DX: S81.801D Unspecified open wound, right lower leg, subsequent encounter (principal); L97.812 Non-pressure chronic ulcer of other part of right lower leg with fat layer exposed; I87.2 Venous insufficiency (chronic) (peripheral); I73.9 Peripheral vascular disease, unspecified; E78.5 Hyperlipidemia, unspecified; I10 Essential (primary) hypertension; Z96.652 Presence of left artificial knee joint; X58.XXXD Exposure to other specified factors, subsequent encounter ==

== ENCOUNTER → 2023-11-13 | Outpatient (CLI) | payer OTHER | END | disposition home or self-care (01) | LOC: WOUNDCARE 03:48 | PROVIDERS: ATTEND Nurse Practitioner Family | DX: S81.801D Unspecified open wound, right lower leg, subsequent encounter (principal); L97.812 Non-pressure chronic ulcer of other part of right lower leg with fat layer exposed; I87.2 Venous insufficiency (chronic) (peripheral); I73.9 Peripheral vascular disease, unspecified; E78.5 Hyperlipidemia, unspecified; I10 Essential (primary) hypertension; Z96.652 Presence of left artificial knee joint; X58.XXXD Exposure to other specified factors, subsequent encounter ==

== ENCOUNTER → 2023-11-20 | Outpatient (CLI) | payer OTHER | END | disposition home or self-care (01) | LOC: WOUNDCARE 00:50 | PROVIDERS: ATTEND Nurse Practitioner Family | DX: L97.812 Non-pressure chronic ulcer of other part of right lower leg with fat layer exposed (principal); I87.2 Venous insufficiency (chronic) (peripheral); I73.9 Peripheral vascular disease, unspecified; E78.5 Hyperlipidemia, unspecified; I10 Essential (primary) hypertension; Z96.652 Presence of left artificial knee joint ==

== ENCOUNTER → 2023-11-27 | Outpatient (CLI) | payer OTHER | END | disposition home or self-care (01) | LOC: WOUNDCARE 01:45 | PROVIDERS: ATTEND Nurse Practitioner Family | DX: S81.801D Unspecified open wound, right lower leg, subsequent encounter (principal); L97.812 Non-pressure chronic ulcer of other part of right lower leg with fat layer exposed; I87.2 Venous insufficiency (chronic) (peripheral); I73.9 Peripheral vascular disease, unspecified; I10 Essential (primary) hypertension; E78.5 Hyperlipidemia, unspecified; Z96.652 Presence of left artificial knee joint; X58.XXXD Exposure to other specified factors, subsequent encounter ==

== ENCOUNTER → 2023-12-04 | Outpatient (CLI) | payer OTHER | END | disposition home or self-care (01) | LOC: WOUNDCARE 01:28 | PROVIDERS: ATTEND Nurse Practitioner Family | DX: L97.812 Non-pressure chronic ulcer of other part of right lower leg with fat layer exposed (principal); I87.2 Venous insufficiency (chronic) (peripheral); I73.9 Peripheral vascular disease, unspecified; I10 Essential (primary) hypertension; E78.5 Hyperlipidemia, unspecified; Z96.652 Presence of left artificial knee joint ==

== ENCOUNTER → 2024-03-24 | Outpatient (CLI) | payer OTHER | END | disposition home or self-care (01) | LOC: RESCLI 00:53 | PROVIDERS: ATTEND Internal Medicine | DX: I10 Essential (primary) hypertension (principal); J44.9 Chronic obstructive pulmonary disease, unspecified; E78.5 Hyperlipidemia, unspecified; K21.9 Gastro-esophageal reflux disease without esophagitis; G47.33 Obstructive sleep apnea (adult) (pediatric); E55.9 Vitamin D deficiency, unspecified; G89.29 Other chronic pain; L97.912 Non-pressure chronic ulcer of unspecified part of right lower leg with fat layer exposed; I87.2 Venous insufficiency (chronic) (peripheral); I73.9 Peripheral vascular disease, unspecified; M54.9 Dorsalgia, unspecified; R53.83 Other fatigue; Z79.899 Other long term (current) drug therapy; Z98.890 Other specified postprocedural states; Z82.49 Family history of ischemic heart disease and other diseases of the circulatory system; Z88.8 Allergy status to other drugs, medicaments and biological substances ==

== ENCOUNTER → 2025-06-18 | Outpatient (CLI) | payer MEDICARE ==
[2025-06-18 10:35] LABS: BASO # 0.0 10*3/uL (0.0-0.1); BASO % 0.6 % (0.0-1.0); EOS # 0.1 10*3/uL (0.0-0.4); EOS % 1.5 % (1.0-4.0); MEAN CELL VOLUME 91.9 fl (80.0-94.0); MEAN CORPUSCULAR HGB 30.7 pg (27.0-31.0); MEAN PLATELET VOLUME 9.8 fl (9.6-12.3); MONO # 0.7 10*3/uL (0.1-1.0); MONO % 9.4 % (3.0-9.0); NEUT # 4.3 10*3/uL (2.3-7.9); NEUT % 59.6 % (47.0-73.0); NUCLEATED RED BLOOD CELL 0.0 % (0.0-0.0); NUCLEATED RED BLOOD CELL 0.0 10*3/uL (0.0-0.0); PLATELET COUNT AUTOMATED 186 10*3/uL (130-400); RED CELL DISTRI WIDTH 14.0 % (0-14.5)
[2025-06-18 11:14] LABS: BUN 15 mg/dl (9-23); LDL CHOLESTEROL 42 mg/dL (9-159); SGPT/ALT 24 U/L (5-49); VITAMIN D, 25-HYDROXY 53.4 ng/mL (30-100)
== END ==
LOC: LAB 09:45
PROVIDERS: ATTEND Nurse Practitioner Primary Care
DX: M43.17 Spondylolisthesis, lumbosacral region (principal); M48.8X6 Other specified spondylopathies, lumbar region; I10 Essential (primary) hypertension; E55.9 Vitamin D deficiency, unspecified; I70.0 Atherosclerosis of aorta; M46.06 Spinal enthesopathy, lumbar region; M54.9 Dorsalgia, unspecified; Z12.5 Encounter for screening for malignant neoplasm of prostate